=== PATIENT | male | born 1995 | race Two or more races ===

== ENCOUNTER 2018-10-11 14:01 | Emergency (ER) | payer OTHER ==
[2018-10-11] MEDS ORDERED: ACETAMINOPHEN 325 MG TABLET PO ONE (15:19)
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
[2018-10-11 17:26] VITALS: BP 139/67
== END 2018-10-11 17:24 | disposition home or self-care (01) ==
LOC: ER 14:01
DX: S09.90XA Unspecified injury of head, initial encounter (principal); R42 Dizziness and giddiness; W22.8XXA Striking against or struck by other objects, initial encounter; Y99.0 Civilian activity done for income or pay
CPT/HCPCS: 70450; 99283